=== PATIENT | female | born 1940 | race Caucasian/White ===

== ENCOUNTER 2023-02-20 12:38 | Emergency (ER) | payer MEDICARE ==
[2023-02-20 13:52] LABS: BASOPHILS ABSOLUTE AUTO 0.1 K/mm3 (0.0-0.2); BASOPHILS PERCENT AUTO 1.1 % (0.0-1.0); EOSINOPHILS ABSOLUTE AUTO 0.1 K/mm3 (0.0-0.4); EOSINOPHILS PERCENT AUTO 0.9 % (0.0-6.0); HEMOGLOBIN 14.9 gm/dl (12.0-16.0); IMMATURE GRAN ABSOLUTE AUTO 0.02 K/mm3 (0.00-0.05); IMMATURE GRAN PERCENT AUTO 0.3 % (0.0-0.4); LYMPHOCYTES ABSOLUTE AUTO 1.5 K/mm3 (1.0-4.8); LYMPHOCYTES PERCENT AUTO 22.4 % (24.0-44.0); MEAN CORPUSCULAR HEMOGLOBIN 30.4 pg (28.0-32.0); MEAN CORPUSCULAR HGB CONC 33.9 g/dl (32.0-36.0); MEAN CORPUSCULAR VOLUME 89.8 fl (83.0-99.0); MEAN PLATELET VOLUME 11.4 fl (9.4-12.3); MONOCYTES ABSOLUTE AUTO 0.5 K/mm3 (0.0-0.8); NEUTROPHILS ABSOLUTE AUTO 4.5 K/mm3 (1.8-7.7); NEUTROPHILS PERCENT AUTO 68.3 % (41.0-71.0); PLATELET COUNT,PLT 203 K/mm3 (150-400); WHITE BLOOD CELL COUNT,WBC 6.53 K/mm3 (3.9-11.3)
[2023-02-20 14:09] LABS: A/G RATIO 0.9 (1-2); ALBUMIN 3.4 g/dl (3.4-5.0); ANION GAP 10.9 (5-15); BILIRUBIN TOTAL 0.7 mg/dL (0.2-1.0); BUN/CREATININE RATIO 22.7 (14-18); CALCIUM 9.4 mg/dL (8.5-10.1); CREATININE 1.1 mg/dL (0.55-1.02); EST CRCL DRUG DOSING (CG) 36.28 mL/min; POTASSIUM,K 3.9 mEq/L (3.5-5.1); PROTEIN TOTAL,TP 7.1 g/dl (6.4-8.2)
[2023-02-20 14:27] LABS: CORONAVIRUS COVID-19 NAA NEGATIVE (NEGATIVE); INFLUENZA A NAA NEGATIVE (NEGATIVE)
== END 2023-02-20 16:17 | disposition home or self-care (01) ==
LOC: JD.ED 12:38
DX: I44.0 Atrioventricular block, first degree (principal); I49.3 Ventricular premature depolarization; I10 Essential (primary) hypertension
CPT/HCPCS: 0240U; 36415; 80053; 83735; 85025; 93005; 99285

== ENCOUNTER 2023-04-20 01:35 | Emergency (ER) | payer MEDICARE ==
[2023-04-20] MEDS: Sodium Chloride 0.9% 10 ML Syringe FLUSH PRN (02:00)
[2023-04-20 02:08] LABS: BASOPHILS ABSOLUTE AUTO 0.1 K/mm3 (0.0-0.2); BASOPHILS PERCENT AUTO 0.8 % (0.0-1.0); EOSINOPHILS ABSOLUTE AUTO 0.1 K/mm3 (0.0-0.4); EOSINOPHILS PERCENT AUTO 0.7 % (0.0-6.0); HEMATOCRIT 43.7 % (37.0-47.0); HEMOGLOBIN 14.4 gm/dl (12.0-16.0); IMMATURE GRAN ABSOLUTE AUTO 0.05 K/mm3 (0.00-0.05); IMMATURE GRAN PERCENT AUTO 0.4 % (0.0-0.4); LYMPHOCYTES ABSOLUTE AUTO 1.3 K/mm3 (1.0-4.8); LYMPHOCYTES PERCENT AUTO 11.5 % (24.0-44.0); MEAN PLATELET VOLUME 11.4 fl (9.4-12.3); MONOCYTES ABSOLUTE AUTO 0.8 K/mm3 (0.0-0.8); MONOCYTES PERCENT AUTO 7.2 % (0.0-8.0); NEUTROPHILS ABSOLUTE AUTO 9.2 K/mm3 (1.8-7.7); NEUTROPHILS PERCENT AUTO 79.4 % (41.0-71.0); PLATELET COUNT,PLT 208 K/mm3 (150-400); WHITE BLOOD CELL COUNT,WBC 11.56 K/mm3 (3.9-11.3)
[2023-04-20 02:39] LABS: ALBUMIN 3.8 g/dl (3.4-5.0); ANION GAP 12.3 (5-15); BILIRUBIN TOTAL 0.7 mg/dL (0.2-1.0); BUN/CREATININE RATIO 26.7 (14-18); CREATININE 0.9 mg/dL (0.55-1.02); EST CRCL DRUG DOSING (CG) 42.62 mL/min; MAGNESIUM 1.7 mg/dL (1.8-2.4); POTASSIUM,K 3.3 mEq/L (3.5-5.1); PROTEIN TOTAL,TP 7.6 g/dl (6.4-8.2)
[2023-04-20] MEDS: Diclofenac Sodium 1% Gel 100 GM Tube TOP ONE (03:04)
[2023-04-20] MEDS: Ondansetron 4 MG/2 ML SDV IVPUSH ONE (03:04)
[2023-04-20 03:27] LABS: APPEARANCE,URINE CLEAR (Clear); BILIRUBIN,URINE NEGATIVE (Negative); COLOR,URINE YELLOW (Yellow); GLUCOSE,URINE NEGATIVE (Negative); KETONES,URINE NEGATIVE (Negative); LEUKOCYTE ESTERASE,URINE NEGATIVE (Negative); NITRITE,URINE NEGATIVE (Negative); OCCULT BLOOD,URINE NEGATIVE (Negative); PH,URINE 5.5 (5.0-8.0); PROTEIN,URINE NEGATIVE (Negative); UROBILINOGEN,URINE 0.2 (0.2-1.0)
[2023-04-20 03:38] LABS: BACTERIA,URINE FEW /hpf (FEW); EPITHELIAL CELLS,URINE 0-5 /hpf (0-5); MUCUS,URINE NOT SEEN /hpf (FEW); RBC,URINE 0-5 /hpf (0-5); WBC,URINE 0-5 /hpf (0-5)
== END 2023-04-20 04:39 | disposition home or self-care (01) ==
LOC: JD.ED 01:35
DX: M94.0 Chondrocostal junction syndrome [Tietze] (principal); D72.9 Disorder of white blood cells, unspecified; I10 Essential (primary) hypertension; Z79.899 Other long term (current) drug therapy
CPT/HCPCS: 36415; 71045; 71045-26; 80053; 81001; 83735; 84484; 85025; 93005; 96374; 99285-25; A9270-GY; J2405; J3490

== ENCOUNTER 2024-01-25 20:16 | Emergency (ER) | payer MEDICARE | END 2024-01-25 22:08 | disposition home or self-care (01) | LOC: JD.ED 20:16 | DX: I80.01 Phlebitis and thrombophlebitis of superficial vessels of right lower extremity (principal); I10 Essential (primary) hypertension; Z79.899 Other long term (current) drug therapy | CPT/HCPCS: 93971-26-RT; 93971-RT; 99283 ==

== ENCOUNTER 2024-06-01 08:23 | Day surgery (SDC) | payer MEDICARE ==
[~2024-06-01 08:23] MED LIST: Sodium Chloride 0.9% 10 ML Syringe FLUSH PRN; Sodium Chloride 0.9% 10 ML Syringe FLUSH SCH
[2024-06-01] MEDS: Lactated Ringers 1,000 ML IV SCH (09:05)
[2024-06-01] MEDS ORDERED: Rocuronium 50 MG/5 ML Vial ONE (10:12)
[2024-06-01] MEDS ORDERED: propofoL 500 MG/50 ML 50 ML ONE (10:12)
[2024-06-01] MEDS ORDERED: fentaNYL 250 MCG/5 ML SDV ONE (10:12)
[2024-06-01] MEDS ORDERED: Lidocaine 1% 5 ML VIAL ONE (10:12)
[2024-06-01] MEDS ORDERED: ceFAZolin 2 GM Vial ONE (10:23)
[2024-06-01] MEDS ORDERED: ePHEDrine 50 MG/ML SDV ONE (10:38)
[2024-06-01] MEDS ORDERED: Ondansetron 4 MG/2 ML SDV ONE (10:48)
[2024-06-01] MEDS ORDERED: Dexamethasone 4 MG/ML 5 ML MDV ONE (10:48)
[2024-06-01] MEDS ORDERED: Propofol 200 MG/20 ML SDV ONE (10:50)
[2024-06-01] MEDS ORDERED: Lactated Ringers 1,000 ML ONE (10:52)
[2024-06-01] MEDS ORDERED: fentaNYL 100 MCG/2 ML SDV IVPUSH PRN (10:52)
[2024-06-01] MEDS ORDERED: Ondansetron 4 MG/2 ML SDV IVPUSH PRN (10:52)
[2024-06-01] MEDS ORDERED: HYDROmorphone 0.5 MG/0.5 ML Syringe IVPUSH PRN (10:52)
[2024-06-01] MEDS ORDERED: Sugammadex Sodium 200 MG/2 ML VIAL IV ONE (11:11)
[2024-06-01] MEDS: Bupivacaine 0.5% 30 ML SDV ONE (12:10)
[2024-06-01] MEDS: EPINEPHrine 1 MG/ML SDV ONE (12:11)
[2024-06-01] MEDS: Ibuprofen 600 MG Tab PO PRN (14:05)
[2024-06-01] MEDS: oxyCODONE 5 MG Tab PO PRN (14:05)
== END 2024-06-01 14:35 | disposition home or self-care (01) ==
LOC: JD.SDS 08:23
PROVIDERS: ATTEND Surgery
DX: K40.90 Unilateral inguinal hernia, without obstruction or gangrene, not specified as recurrent (principal); I10 Essential (primary) hypertension
CPT/HCPCS: 49505; A9270; J0171; J0665; J0690; J1100; J2003; J2405; J2704; J3010; J7120; 99203; C1781; J3490